=== PATIENT | male | born 1960 | race Caucasian/White ===

== ENCOUNTER 2017-11-24 11:03 | Observation (INO) ==
[~2017-11-24 11:03] MED LIST: *HR* FentaNYL (PF) 100 MCG/2 ML VIAL IVP PRN; *HR* OxyCODONE Immed Rel 5 MG TABLET PO PRN; *HR* Promethazine 25 MG/ML VIAL IVP PRN; Ondansetron 4 MG/2 ML VIAL IVP ONE
[2017-11-24] MEDS ORDERED: 0.9 % Sodium Chloride 1,000 ML IVC ONE (11:39)
[2017-11-24] MEDS ORDERED: Ketorolac 15 MG/ML VIAL IVP ONE (11:43)
[2017-11-24] MEDS ORDERED: Ondansetron 4 MG/2 ML VIAL IVP ONE (11:43)
[2017-11-24] MEDS ORDERED: Isovue-370 500 ML INFUS..BTL IV ONE (11:43)
[2017-11-24 12:00] LABS: Bilirubin,Urine Negative (Negative); Blood,Urine Negative (Negative); Clarity,Urine Clear (Clear); Color,Urine Yellow (Yellow); Glucose,Urine (UA) Normal (Normal); Ketones,Urine Negative (Negative); Leukocyte Esterase,Urine Negative (Negative); Nitrite,Urine Negative (Negative); Protein,Urine Negative (Neg-Trace); Specific Gravity,Urine 1.014 (1.010-1.025); Urobilinogen,Urine Normal (Normal)
[2017-11-24 12:55] LABS: Basophils % 0.4 %; Eosinophils # 0.2 K/mcL (0.0-0.6); Eosinophils % 1.8 %; Hematocrit 49.5 % (37.5-50.1); Hemoglobin 16.6 g/dL (12.9-16.9); Immature Granulocytes % 0.4 % (0-4); Lymphocytes # 2.6 K/mcL (0.6-4.6); Lymphocytes % 32.2 %; Mean Corpuscular HGB Conc 33.5 g/dL (31.6-35.5); Mean Corpuscular Hemoglobin 29.6 pg (28.0-33.3); Mean Corpuscular Volume 88.4 fL (83.0-100.0); Mean Platelet Volume 9.9 fL (9.4-12.4); Monocytes # 0.7 K/mcL (0.0-1.3); Monocytes % 8.1 %; Neutrophils # 4.6 K/mcL (1.6-8.9); Platelet Count 262 K/mcL (140-400); Red Cell Distribution Width 13.4 % (11.5-14.5); Segmented Neutrophils % 57.1 %
[2017-11-24 13:17] LABS: Alanine Aminotransferase 32 Units/L (7-52); Albumin 4.2 g/dL (3.5-5.7); Albumin/Globulin Ratio 1.4 (1.1-2.2); Alkaline Phosphatase 94 Units/L (34-104); Aspartate Amino Transferase 24 Units/L (13-39); BUN/Creatinine Ratio 16 (6-26); Bilirubin,Direct 0.2 mg/dL (0.0-0.2); Bilirubin,Indirect 0.3 mg/dL (0.0-1.2); Bilirubin,Total 0.5 mg/dL (0.3-1.0); Blood Urea Nitrogen 14 mg/dL (6-20); Calcium 9.2 mg/dL (8.6-10.3); Carbon Dioxide 28 mEq/L (23-29); Chloride 107 mEq/L (98-107); Glucose 101 mg/dL (70-105); Lipase 24 Units/L (11-82); Osmolality,Calculated 289 (280-300); Potassium 4.1 mEq/L (3.5-5.1); Sodium 139 mEq/L (136-145); Total Protein 7.2 g/dL (6.4-8.9); eGFR For African Americans > 60 (> 60); eGFR For Non-African Americans > 60 (> 60)
[2017-11-24] MEDS ORDERED: *HR* FentaNYL (PF) 100 MCG/2 ML VIAL IVP ONE (14:12)
--- NOTE | 2017-11-24 14:12 | Emergency Department Note ---
Disposition Clinical Impression: Abdominal pain Qualifiers: Abdominal location: right lower quadrant Qualified Code(s): R10.31 - Right lower quadrant pain Disposition: Admitted As Inpatient Condition: Good Referrals: Jl Camacho MD [Primary Care Provider] - Forms: ED Satisfaction Letter, Work/School Release Time of Disposition: 16:46 Abdominal Pain HPI - General Chief Complaint: ED Abdominal Pain Stated Complaint: Abdominal pain Time Seen by Provider: 11/24/17 11:37 Source: patient Mode of arrival: ambulatory Limitations: no limitations Nursing Notes Reviewed: Yes Vital Signs Reviewed: Yes - History of Present Illness HPI Narrative: 57-year-old male history of COPD presents with abdominal pain. Complains of gradually worsened right lower quadrant pain for past 3 days. Describes as a sharp stabbing pain without radiation. Associated nausea no vomiting. Recently has been getting worse with certain movements. No association to food. Patient took a Vicodin from a friend which did help with the symptoms. No fevers. Decreased appetite. Denies any genital pain. Denies any urinary symptoms. History of a Stephen x2 years performed by Dr. Lomeli, denies any other abdominal surgeries. Pt Subjective Complaint: abdominal pain Pain Scale: 10 - Related Data Home Medications Medication Instructions Recorded Confirmed Omeprazole [PriLOSEC] 40 mg PO DAILY 04/25/16 06/30/16 Ranitidine HCl [Zantac] 150 mg PO HS 04/25/16 06/30/16 Simethicone [Bicarsim Forte] 125 mg PO Q8H 04/25/16 06/30/16 Previous Rx's Medication Instructions Recorded Docusate [Colace] 100 mg PO BID PRN #30 capsule 04/25/16 Allergies Allergy/AdvReac Type Severity Reaction Status Date / Time No Known Allergies Allergy Verified 11/24/17 11:21 All systems ED: reviewed and negative except as stated. Review of Systems: As Per HPI Constitutional: Denies: fever, chills ENT ED: Denies: congestion Cardiovascular: Denies: chest pain Respiratory: Denies: cough, dyspnea Gastrointestinal: Reports: abdominal pain, nausea. Denies: vomiting, diarrhea, constipation, hematemesis, melena, hematochezia Genitourinary: Denies: urgency, dysuria, testicular pain Musculoskeletal: Denies: back pain Integumentary: Denies: rash, abrasion Neurological: Denies: headache, weakness Abdominal Pain PMH - Past Medical History Medical history: Reports: COPD, GERD Male Surgical History: Reports: other Psychiatric history: Reports: no psych history - Social History Smoking status: Current every day smoker Alcohol use: Reports: none Drug use: Reports: none Physical Exam - General Limitations: no limitations General appearance: alert - Head Head exam: atraumatic, normocephalic, normal inspection - Eye Eye exam: Present: normal appearance, PERRL, EOMI. Absent: scleral icterus - ENT ENT exam: normal exam, normal oropharynx, mucous membranes moist - Neck Neck exam: Present: normal inspection, full ROM, trachea midline - Chest Chest inspection: Present: normal inspection, symmetric chest wall rise - Respiratory Respiratory exam: Present: normal lung sounds bilaterally - Cardiovascular Cardiovascular exam: Present: regular rate, normal rhythm, normal heart sounds. Absent: systolic murmur, diastolic murmur - Abdominal Exam Abdominal exam: Present: tenderness (RLQ), normal bowel sounds, obturator sign, Rovsing's sign, tenderness at McBurney's Point. Absent: distention, guarding, rebound, rigidity, Mullen's sign Abdominal tenderness: Present: RLQ - Extremities Exam Extremities exam: Present: normal inspection, full ROM, normal capillary refill. Absent: tenderness, pedal edema - Back Exam Back exam: Present: normal inspection, full ROM. Absent: tenderness, CVA tenderness (R), CVA tenderness (L) - Neurological Exam Neurological exam: Present: alert, oriented X3 - Psychiatric Psychiatric exam: Present: normal affect, normal mood - Skin Skin exam: Present: warm, dry, intact, normal color. Absent: rash, cyanosis, diaphoresis Course Course Narrative: 57-year-old male right lower quadrant past 3 days. Some associated nausea poor appetite. On exam his abdomen is tender to the right lower quadrant with positive Rovsing sign a McBurney point. Also has a obturator sign. He has some mild guarding as well. Review of his labs he has no leukocytosis in his labs or otherwise unremarkable. Review of his CT scan shows a mildly dilated appendix updated 9 mm. His pain was control with toward all and will give him additional analgesic. Will have the surgeon [facility] consultant evaluate the patient for possible surgery versus observation. - Consultations Consultation #1: Consulted with the on-call surgeon Dr. Farah in regards to patient's clinical exam, CT findings and laboratory results. Patient has no leukocytosis but he does have positive Rovsing sign and McBurney point with some mild guarding on examination. Concern for acute appendicitis. The surgeon will come down to the emergency department to evaluate the patient for further disposition. Patient's pain was control with Toradol and now exacerbated. Fentanyl ordered. Time: 14:55 Consultation #2: Surgery has evaluated the patient. Plan for surgery possibly later today. They will reevaluate. Consideration for possible discharge vs. operative vs. observation with Flagyl and Cipro. Time: 16:22 Consultation #3: Final decision by Dr. Farah, surgeon, for surgery today. Surgical consent obtained by surgery resident. Place on Zosyn and placed on IVF. Time: 16:46 Vital Signs Temperature 97.5 F L 11/24/17 11:22 Pulse Rate 76 11/24/17 11:22 Respiratory Rate 26 11/24/17 11:22 Blood Pressure 121/85 11/24/17 11:22 O2 Sat by Pulse Oximetry 99 11/24/17 11:22 Temperature 97.5 F L 11/24/17 11:22 Pulse Rate 76 11/24/17 11:22 Respiratory Rate 26 11/24/17 11:22 Blood Pressure 121/85 11/24/17 11:22 O2 Sat by Pulse Oximetry 99 11/24/17 12:38 Oxygen Delivery Oxygen Delivery Room Air Abdominal Pain - MDM Narrative Medical decision making narrative: Patient was discussed with my attending physician who agrees with ED management and final disposition. They independently evaluated the patient. Please refer to their attestation to this encounter for additional information. This note was generated by [employer] voice recognition software and as a result grammatical or spelling errors may occur using this program. - Medical Records Medical records reviewed: Yes I reviewed the patient's medical records. - Lab Data Lab results reviewed: Yes I reviewed the patient's lab results. Result diagrams: 11/24/17 12:30 11/24/17 12:30 Lab Results 11/24/17 11/24/17 11/24/17 Range/Units 11:08 12:30 12:30 WBC 8.1 (4.3-11.1) K/mcL RBC 5.60 H (4.19-5.50) M/mcL Hgb 16.6 (12.9-16.9) g/dL Hct 49.5 (37.5-50.1) % MCV 88.4 (83.0-100.0) fL MCH 29.6 (28.0-33.3) pg MCHC 33.5 (31.6-35.5) g/dL RDW 13.4 (11.5-14.5) % Plt Count 262 (140-400) K/mcL MPV 9.9 (9.4-12.4) fL Immature Gran % 0.4 (0-4) % Seg Neutrophils % 57.1 % Lymphocytes % 32.2 % Monocytes % 8.1 % Eosinophils % 1.8 % Basophils % 0.4 % Neutrophils # 4.6 (1.6-8.9) K/mcL Lymphocytes # 2.6 (0.6-4.6) K/mcL Monocytes # 0.7 (0.0-1.3) K/mcL Eosinophils # 0.2 (0.0-0.6) K/mcL Basophils # 0.0 (0.0-0.2) K/mcL PT (9.4-12.1) Seconds INR APTT (26.0-36.0) Seconds Sodium 139 (136-145) mEq/L Potassium 4.1 (3.5-5.1) mEq/L Chloride 107 (98-107) mEq/L Carbon Dioxide 28 (23-29) mEq/L BUN 14 (6-20) mg/dL Creatinine 0.86 (0.70-1.30) mg/dL Est GFR ( Amer) > 60 (> 60) Est GFR (Non-Af Amer) > 60 (> 60) BUN/Creatinine Ratio 16 (6-26) Glucose 101 (70-105) mg/dL Calculated Osmolality 289 (280-300) Calcium 9.2 (8.6-10.3) mg/dL Total Bilirubin 0.5 (0.3-1.0) mg/dL Direct Bilirubin 0.2 (0.0-0.2) mg/dL Indirect Bilirubin 0.3 (0.0-1.2) mg/dL AST 24 (13-39) Units/L ALT 32 (7-52) Units/L Alkaline Phosphatase 94 (34-104) Units/L Serum Total Protein 7.2 (6.4-8.9) g/dL Albumin 4.2 (3.5-5.7) g/dL Globulin 3.0 (2.4-3.5) g/dL Albumin/Globulin Ratio 1.4 (1.1-2.2) Lipase 24 (11-82) Units/L Urine Color Yellow (Yellow) Urine Clarity Clear (Clear) Urine pH 6.0 (5.0-8.0) pH Units Ur Specific [place] 1.014 (1.010-1.025) Urine Protein Negative (Neg-Trace) mg/dL Urine Glucose (UA) Normal (Normal) mg/dL Urine Ketones Negative (Negative) mg/dL Urine Blood Negative (Negative) Urine Nitrite Negative (Negative) Urine Bilirubin Negative (Negative) Urine Urobilinogen Normal (Normal) mg/dL Ur Leukocyte Esterase Negative (Negative) Ur Culture Indicated? NO (NO) 11/24/17 Range/Units 12:30 WBC (4.3-11.1) K/mcL RBC (4.19-5.50) M/mcL Hgb (12.9-16.9) g/dL Hct (37.5-50.1) % MCV (83.0-100.0) fL MCH (28.0-33.3) pg MCHC (31.6-35.5) g/dL RDW (11.5-14.5) % Plt Count (140-400) K/mcL MPV (9.4-12.4) fL Immature Gran % (0-4) % Seg Neutrophils % % Lymphocytes % % Monocytes % % Eosinophils % % Basophils % % Neutrophils # (1.6-8.9) K/mcL Lymphocytes # (0.6-4.6) K/mcL Monocytes # (0.0-1.3) K/mcL Eosinophils # (0.0-0.6) K/mcL Basophils # (0.0-0.2) K/mcL PT 10.3 (9.4-12.1) Seconds INR 1.0 APTT 31.8 (26.0-36.0) Seconds Sodium (136-145) mEq/L Potassium (3.5-5.1) mEq/L Chloride (98-107) mEq/L Carbon Dioxide (23-29) mEq/L BUN (6-20) mg/dL Creatinine (0.70-1.30) mg/dL Est GFR ( Amer) (> 60) Est GFR (Non-Af Amer) (> 60) BUN/Creatinine Ratio (6-26) Glucose (70-105) mg/dL Calculated Osmolality (280-300) Calcium (8.6-10.3) mg/dL Total Bilirubin (0.3-1.0) mg/dL Direct Bilirubin (0.0-0.2) mg/dL Indirect Bilirubin (0.0-1.2) mg/dL AST (13-39) Units/L ALT (7-52) Units/L Alkaline Phosphatase (34-104) Units/L Serum Total Protein (6.4-8.9) g/dL Albumin (3.5-5.7) g/dL Globulin (2.4-3.5) g/dL Albumin/Globulin Ratio (1.1-2.2) Lipase (11-82) Units/L Urine Color (Yellow) Urine Clarity (Clear) Urine pH (5.0-8.0) pH Units Ur Specific [place] (1.010-1.025) Urine Protein (Neg-Trace) mg/dL Urine Glucose (UA) (Normal) mg/dL Urine Ketones (Negative) mg/dL Urine Blood (Negative) Urine Nitrite (Negative) Urine Bilirubin (Negative) Urine Urobilinogen (Normal) mg/dL Ur Leukocyte Esterase (Negative) Ur Culture Indicated? (NO) - Radiology Data Radiology results reviewed: Yes I reviewed the patient's radiology results. Abdomen/Pelvis CT 11/24/17 11:43 IMPRESSION: Appendix is mildly dilated and increased in size compared to prior study without evidence of fat infiltration or abscess formation with low-grade appendicitis not excluded given symptomatology. Scattered fluid filled small bowel loops are noted which may be related to low-grade enteritis. No bowel obstruction is seen. RECOMMENDATIONS: Clinical and laboratory correlation is recommended. D/ / 11/24/2017 14:39:16 Geovanna Garay MD / garima Interpreting Provider: Geovanna Garay MD Attestation Statement - Attestation Attestation: I, Pilo Beverly DO, examined this patient [id number] and my medical decision-making was reviewed with Jagdish Handy DO , Resident Physician. I agree with the documented findings, disposition and treatment plan as described except to the extent set forth below. Please see my progress notes for details.
--- NOTE | 2017-11-24 14:32 | Emergency Department Note ---
Disposition Clinical Impression: Abdominal pain Qualifiers: Abdominal location: right lower quadrant Qualified Code(s): R10.31 - Right lower quadrant pain Disposition: Admitted As Inpatient Condition: Good Referrals: Jl Camacho MD [Primary Care Provider] - Forms: ED Satisfaction Letter, Work/School Release Time of Disposition: 17:48 General Adult HPI - General Chief complaint: ED Abdominal Pain Stated complaint: Abdominal pain Time Seen by Provider: 11/24/17 11:37 Source: patient Mode of arrival: ambulatory Limitations: no limitations - History of Present Illness Pain Scale: 10 - Related Data Home Medications Medication Instructions Recorded Confirmed Ranitidine HCl [Zantac] 150 mg PO BID 04/25/16 11/24/17 Albuterol Sulfate [Ventolin Hfa] 2 puff IH Q4H PRN 11/24/17 11/24/17 Docusate [Colace] 100 mg PO DAILY PRN 11/24/17 11/24/17 Allergies Allergy/AdvReac Type Severity Reaction Status Date / Time No Known Allergies Allergy Verified 11/24/17 17:11 Past Medical History - Past Medical History Medical history: Reports: COPD, GERD Psychiatric history: Reports: no psych history - Social History Smoking Status: Current every day smoker Smokeless Tobacco Status: No Alcohol use: Reports: none Drug use: Reports: none Physical Exam - General Limitations: no limitations General appearance: alert Course Vital Signs Temperature 97.5 F L 11/24/17 11:22 Pulse Rate 76 11/24/17 11:22 Respiratory Rate 26 11/24/17 11:22 Blood Pressure 121/85 11/24/17 11:22 O2 Sat by Pulse Oximetry 99 11/24/17 11:22 Temperature 97.5 F L 11/24/17 11:22 Pulse Rate 76 11/24/17 11:22 Respiratory Rate 26 11/24/17 11:22 Blood Pressure 121/85 11/24/17 11:22 O2 Sat by Pulse Oximetry 99 11/24/17 12:38 Oxygen Delivery Oxygen Delivery Room Air Medical Decision Making - Lab Data Result diagrams: 11/24/17 12:30 11/24/17 12:30 Lab Results 11/24/17 11/24/17 11/24/17 Range/Units 11:08 12:30 12:30 WBC 8.1 (4.3-11.1) K/mcL RBC 5.60 H (4.19-5.50) M/mcL Hgb 16.6 (12.9-16.9) g/dL Hct 49.5 (37.5-50.1) % MCV 88.4 (83.0-100.0) fL MCH 29.6 (28.0-33.3) pg MCHC 33.5 (31.6-35.5) g/dL RDW 13.4 (11.5-14.5) % Plt Count 262 (140-400) K/mcL MPV 9.9 (9.4-12.4) fL Immature Gran % 0.4 (0-4) % Seg Neutrophils % 57.1 % Lymphocytes % 32.2 % Monocytes % 8.1 % Eosinophils % 1.8 % Basophils % 0.4 % Neutrophils # 4.6 (1.6-8.9) K/mcL Lymphocytes # 2.6 (0.6-4.6) K/mcL Monocytes # 0.7 (0.0-1.3) K/mcL Eosinophils # 0.2 (0.0-0.6) K/mcL Basophils # 0.0 (0.0-0.2) K/mcL PT (9.4-12.1) Seconds INR APTT (26.0-36.0) Seconds Sodium 139 (136-145) mEq/L Potassium 4.1 (3.5-5.1) mEq/L Chloride 107 (98-107) mEq/L Carbon Dioxide 28 (23-29) mEq/L BUN 14 (6-20) mg/dL Creatinine 0.86 (0.70-1.30) mg/dL Est GFR ( Amer) > 60 (> 60) Est GFR (Non-Af Amer) > 60 (> 60) BUN/Creatinine Ratio 16 (6-26) Glucose 101 (70-105) mg/dL Calculated Osmolality 289 (280-300) Calcium 9.2 (8.6-10.3) mg/dL Total Bilirubin 0.5 (0.3-1.0) mg/dL Direct Bilirubin 0.2 (0.0-0.2) mg/dL Indirect Bilirubin 0.3 (0.0-1.2) mg/dL AST 24 (13-39) Units/L ALT 32 (7-52) Units/L Alkaline Phosphatase 94 (34-104) Units/L Serum Total Protein 7.2 (6.4-8.9) g/dL Albumin 4.2 (3.5-5.7) g/dL Globulin 3.0 (2.4-3.5) g/dL Albumin/Globulin Ratio 1.4 (1.1-2.2) Lipase 24 (11-82) Units/L Urine Color Yellow (Yellow) Urine Clarity Clear (Clear) Urine pH 6.0 (5.0-8.0) pH Units Ur Specific [place] 1.014 (1.010-1.025) Urine Protein Negative (Neg-Trace) mg/dL Urine Glucose (UA) Normal (Normal) mg/dL Urine Ketones Negative (Negative) mg/dL Urine Blood Negative (Negative) Urine Nitrite Negative (Negative) Urine Bilirubin Negative (Negative) Urine Urobilinogen Normal (Normal) mg/dL Ur Leukocyte Esterase Negative (Negative) Ur Culture Indicated? NO (NO) 11/24/17 Range/Units 12:30 WBC (4.3-11.1) K/mcL RBC (4.19-5.50) M/mcL Hgb (12.9-16.9) g/dL Hct (37.5-50.1) % MCV (83.0-100.0) fL MCH (28.0-33.3) pg MCHC (31.6-35.5) g/dL RDW (11.5-14.5) % Plt Count (140-400) K/mcL MPV (9.4-12.4) fL Immature Gran % (0-4) % Seg Neutrophils % % Lymphocytes % % Monocytes % % Eosinophils % % Basophils % % Neutrophils # (1.6-8.9) K/mcL Lymphocytes # (0.6-4.6) K/mcL Monocytes # (0.0-1.3) K/mcL Eosinophils # (0.0-0.6) K/mcL Basophils # (0.0-0.2) K/mcL PT 10.3 (9.4-12.1) Seconds INR 1.0 APTT 31.8 (26.0-36.0) Seconds Sodium (136-145) mEq/L Potassium (3.5-5.1) mEq/L Chloride (98-107) mEq/L Carbon Dioxide (23-29) mEq/L BUN (6-20) mg/dL Creatinine (0.70-1.30) mg/dL Est GFR ( Amer) (> 60) Est GFR (Non-Af Amer) (> 60) BUN/Creatinine Ratio (6-26) Glucose (70-105) mg/dL Calculated Osmolality (280-300) Calcium (8.6-10.3) mg/dL Total Bilirubin (0.3-1.0) mg/dL Direct Bilirubin (0.0-0.2) mg/dL Indirect Bilirubin (0.0-1.2) mg/dL AST (13-39) Units/L ALT (7-52) Units/L Alkaline Phosphatase (34-104) Units/L Serum Total Protein (6.4-8.9) g/dL Albumin (3.5-5.7) g/dL Globulin (2.4-3.5) g/dL Albumin/Globulin Ratio (1.1-2.2) Lipase (11-82) Units/L Urine Color (Yellow) Urine Clarity (Clear) Urine pH (5.0-8.0) pH Units Ur Specific [place] (1.010-1.025) Urine Protein (Neg-Trace) mg/dL Urine Glucose (UA) (Normal) mg/dL Urine Ketones (Negative) mg/dL Urine Blood (Negative) Urine Nitrite (Negative) Urine Bilirubin (Negative) Urine Urobilinogen (Normal) mg/dL Ur Leukocyte Esterase (Negative) Ur Culture Indicated? (NO) Attestation Statement - Attestation Attestation: I, Pilo Beverly DO, examined this patient [id number] and my medical decision-making was reviewed with Jagdish Handy DO , Resident Physician. I agree with the documented findings, disposition and treatment plan as described except to the extent set forth below. Please see my progress notes for details. 57-year-old male presents emergency room with complaint of right lower quadrant abdominal pain. Patient denies any trauma or injury. Currently denying any nausea vomiting diarrhea fevers chills chest pain shortness of breath headache or vision change. Denies any headache or vision change at this point. Patient has never had any intra-abdominal pathology in the past. Lungs are clear to auscultation heart is regular abdomen is softly does have point tenderness in the right lower quadrant of the abdomen right side. He denies any bowel movements over the last 24 hours. Denies any urinary symptoms at this time. Patient has no specific history of intra-abdominal surgery, obstruction, scars. Patient is concerning for appendicitis versus obstruction based on presentation symptoms. Fluids pain medication nausea medication will be given. CBC chemistry lipase will be ordered at this time. Patient also has CT imaging with IV contrast secondary to the patient's small body habitus. No critical care provider this patient's treatment course at this time. See detailed documentation of the physical exam, medical intervention, medical decision-making and disposition in the resident physician's note. 1500 Patient has what appears to be possible appendicitis. Dilation of the appendix is noted. Surgical consultation placed. They will evaluate the patient here in the emergency room. 1700 Patient found to have physical exam findings concerning for appendicitis based on the surgeon Dr. Mcdonald. Patient will be taken to the operative suite for definitive management. Admission process will be completed at this time.
[2017-11-24 16:40] LABS: Prothrombin Time 10.3 Seconds (9.4-12.1)
[2017-11-24 16:42] LABS: Activated Partial Thrombo Time 31.8 Seconds (26.0-36.0)
[2017-11-24] MEDS ORDERED: Piperacillin/Tazobactam 3.375 GM in 0.9 % Sodium Chloride Mini Bag 100 ML IVPB ONE (16:59)
[2017-11-24] MEDS ORDERED: 0.9 % Sodium Chloride 1,000 ML IVC SCH (17:00)
--- NOTE | 2017-11-24 17:06 | General Surg History&Physical ---
<Richard Anand - Last Filed: 11/24/17 17:14> Date of Encounter: 11/24/17 Time of Encounter: 16:00 Assessment and Plan (1) Acute appendicitis Current Visit: Yes Status: Acute Afebrile, no wt ct, VSS, labs and basic chemistrites unremarkable Abdomen non-rigid, non-peritoneal Tenderness at McBurney's point; questionable obturator, negative psoas CT demonstrates mild dilatation without identified fecolith Plan: While labs and imaging do not immediately suggest acute appendicitis, location of abdominal pain and physical exam findings warrant evaluation in the operating room. We will proceed with a laparoscopic appendectomy. Risks and benefits have been discussed with the patient and he agrees to the discussed plan. The assessment and plan as outlined above was discussed with the patient and/or family members who expressed understanding and agreement. All questions were answered. Qualifiers: Acute appendicitis type: unspecified acute appendicitis type Qualified Code (s): K35.80 - Unspecified acute appendicitis History of Present Illness Chief complaint: RLQ abd pain HPI: Mr. Rose is a 57 year old male with PMH COPD and GERD, presenting with worsening RLQ pain for the past 3 days. He describes it as sharp, non-radiating , worse with touch and movement, improved mildly with pain meds, he remembers having a bm 3 days ago, he says constipation is not typical for him. He continues to past flatus. He denies fever, nausea, vomiting, hematuria, hematochezia, trauma, heavy lifting. He has had a malgorzata fundoplication 2 years ago, no abdominal surgeries. Past Med Surg Social Fam HX - Past Medical History Medical history: COPD, GERD Psychiatric history: no psych history - Social History Smoking Status: Current every day smoker Smokeless Tobacco Status: No Alcohol use: none Drug use: none Medications and Allergies Ranitidine HCl [Zantac] 150 mg PO BID 04/25/16 [History] Albuterol Sulfate [Ventolin Hfa] 2 puff IH Q4H PRN 11/24/17 [History] Docusate [Colace] 100 mg PO DAILY PRN 11/24/17 [History] 3 Allergy/AdvReac Type Severity Reaction Status Date / Time No Known Allergies Allergy Verified 11/24/17 17:11 Review of Systems All systems PM: reviewed and no additional remarkable complaints except as stated All systems PM: The remainder of the systems were reviewed and are negative - Constitutional fatigue, no chills, no fever(s) - Cardiovascular no diaphoresis, no dyspnea on exertion - Respiratory no hemoptysis - Gastrointestinal abdominal pain, constipation, no bloating, no hematemesis, no hematochezia, no melena, no nausea, no vomiting - Genitourinary no difficulty urinating, no dysuria - Musculoskeletal no back pain - Integumentary no change in pigmentation - Neurological no paresthesias - Psychiatric no anxiety, no confusion, no depression General Surgery Exam Initial Vital Signs Temp Pulse Resp BP Pulse Ox 97.5 F L 76 26 121/85 99 11/24/17 11:22 11/24/17 11:22 11/24/17 11:22 11/24/17 11:22 11/24/17 11:22 - General physical appearance well developed, well nourished, moderate distress - ENT normal mucosa - Respiratory normal respiratory effort, clear to auscultation - Cardiovascular Cardiovascular exam: Present: RRR, no murmurs/rubs/gallops - Abdomen Abdomen general surgery: Present: bowel sounds present, soft, tender ( tenderness at mcburney's; questionable obturator sign, negative psoas sign), guarding. Absent: rigid Abdominal Tenderness: Present: RLQ - Integumentary Integumentary general surgery: Present: warm and dry - Neurologic Present: normal coordination, normal sensation - Musculoskeletal Present: normal posture - Psychiatric Psychiatric general surgery: Present: A&Ox3, appropriate, speech is normal, memory intact Results - Labs 11/24/17 12:30 11/24/17 12:30 Abnormal lab results RBC 5.60 M/mcL (4.19-5.50) H 11/24/17 12:30 Diabetes panel 11/24/17 Range/Units 12:30 Sodium 139 (136-145) mEq/L Potassium 4.1 (3.5-5.1) mEq/L Chloride 107 (98-107) mEq/L Carbon Dioxide 28 (23-29) mEq/L BUN 14 (6-20) mg/dL Creatinine 0.86 (0.70-1.30) mg/dL Glucose 101 (70-105) mg/dL Calcium 9.2 (8.6-10.3) mg/dL AST 24 (13-39) Units/L ALT 32 (7-52) Units/L Alkaline Phosphatase 94 (34-104) Units/L Albumin 4.2 (3.5-5.7) g/dL Calcium panel 11/24/17 Range/Units 12:30 Calcium 9.2 (8.6-10.3) mg/dL Albumin 4.2 (3.5-5.7) g/dL Pituitary panel 11/24/17 Range/Units 12:30 Sodium 139 (136-145) mEq/L Potassium 4.1 (3.5-5.1) mEq/L Chloride 107 (98-107) mEq/L Carbon Dioxide 28 (23-29) mEq/L BUN 14 (6-20) mg/dL Creatinine 0.86 (0.70-1.30) mg/dL Glucose 101 (70-105) mg/dL Calcium 9.2 (8.6-10.3) mg/dL Adrenal panel 11/24/17 Range/Units 12:30 Sodium 139 (136-145) mEq/L Potassium 4.1 (3.5-5.1) mEq/L Chloride 107 (98-107) mEq/L Carbon Dioxide 28 (23-29) mEq/L BUN 14 (6-20) mg/dL Creatinine 0.86 (0.70-1.30) mg/dL Glucose 101 (70-105) mg/dL Calcium 9.2 (8.6-10.3) mg/dL Total Bilirubin 0.5 (0.3-1.0) mg/dL AST 24 (13-39) Units/L ALT 32 (7-52) Units/L Alkaline Phosphatase 94 (34-104) Units/L Albumin 4.2 (3.5-5.7) g/dL All other labs normal. - Imaging Additional studies: Abdomen/Pelvis CT 11/24/17 11:43 IMPRESSION: Appendix is mildly dilated and increased in size compared to prior study without evidence of fat infiltration or abscess formation with low-grade appendicitis not excluded given symptomatology. Scattered fluid filled small bowel loops are noted which may be related to low-grade enteritis. No bowel obstruction is seen. RECOMMENDATIONS: Clinical and laboratory correlation is recommended. D/ / 11/24/2017 14:39:16 Geovanna Garay MD / garima Interpreting Provider: Geovanna Garay MD <Bernardino Farah - Last Filed: 11/24/17 17:21> Date of Encounter: 11/24/17 History of Present Illness HPI: Mr. Rose is a 57 year old male Review of Systems All systems PM: The remainder of the systems were reviewed and are negative General Surgery Exam Initial Vital Signs Temp Pulse Resp BP Pulse Ox 97.5 F L 76 26 121/85 99 11/24/17 11:22 11/24/17 11:22 11/24/17 11:22 11/24/17 11:22 11/24/17 11:22 Results - Labs 11/24/17 12:30 11/24/17 12:30 Abnormal lab results RBC 5.60 M/mcL (4.19-5.50) H 11/24/17 12:30 Diabetes panel 11/24/17 Range/Units 12:30 Sodium 139 (136-145) mEq/L Potassium 4.1 (3.5-5.1) mEq/L Chloride 107 (98-107) mEq/L Carbon Dioxide 28 (23-29) mEq/L BUN 14 (6-20) mg/dL Creatinine 0.86 (0.70-1.30) mg/dL Glucose 101 (70-105) mg/dL Calcium 9.2 (8.6-10.3) mg/dL AST 24 (13-39) Units/L ALT 32 (7-52) Units/L Alkaline Phosphatase 94 (34-104) Units/L Albumin 4.2 (3.5-5.7) g/dL Calcium panel 11/24/17 Range/Units 12:30 Calcium 9.2 (8.6-10.3) mg/dL Albumin 4.2 (3.5-5.7) g/dL Pituitary panel 11/24/17 Range/Units 12:30 Sodium 139 (136-145) mEq/L Potassium 4.1 (3.5-5.1) mEq/L Chloride 107 (98-107) mEq/L Carbon Dioxide 28 (23-29) mEq/L BUN 14 (6-20) mg/dL Creatinine 0.86 (0.70-1.30) mg/dL Glucose 101 (70-105) mg/dL Calcium 9.2 (8.6-10.3) mg/dL Adrenal panel 04/17/18 Range/Units 12:30 Sodium 139 (136-145) mEq/L Potassium 4.1 (3.5-5.1) mEq/L Chloride 107 (98-107) mEq/L Carbon Dioxide 28 (23-29) mEq/L BUN 14 (6-20) mg/dL Creatinine 0.86 (0.70-1.30) mg/dL Glucose 101 (70-105) mg/dL Calcium 9.2 (8.6-10.3) mg/dL Total Bilirubin 0.5 (0.3-1.0) mg/dL AST 24 (13-39) Units/L ALT 32 (7-52) Units/L Alkaline Phosphatase 94 (34-104) Units/L Albumin 4.2 (3.5-5.7) g/dL All other labs normal. - Attending Attestation I have personally seen and examined the patient. I have reviewed pertinent labs , imaging, progress notes, including this one. I agree with the above assessment and plan and wish to include the following... 57M with 4 days of worsening right lower quadrant pain with associated anorexia , nausea, subjective chills; TTP along RLQ; WBC wnl and no obvious evidence of acute appendicitis on CT; although his story sounds like acute appendicitis, it is odd that his WBC and CT scan do not suggest appendicitis that has been brewing for three days. There is a chance that he was having symptoms of gastroenteritis, had subsequent lymphoid enlargement and appdendiceal obstruction causing appendicitis; will plan on taking patient to the OR for diagnostic lap, poss appy, poss ileocectomy; Discussed with patient in detail and he wishes to proceed;
[2017-11-24] MEDS ORDERED: Ondansetron 4 MG/2 ML VIAL IVP PRN (17:34)
[2017-11-24] MEDS ORDERED: *HR* FentaNYL (PF) 100 MCG/2 ML VIAL IVP PRN (19:57)
--- NOTE | 2017-11-24 20:46 | Anesthesia Evaluation PreOp ---
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: Denies Any Significant HX Other Medical History: GERD Anesthesia History: No Prior Anesthetic Complications, Past Anesthesia (robotic lap malgorzata) Alcohol Use: none Drug use: none Medications and Allergies Ranitidine HCl [Zantac] 150 mg PO BID 04/25/16 [History] Albuterol Sulfate [Ventolin Hfa] 2 puff IH Q4H PRN 11/24/17 [History] Docusate [Colace] 100 mg PO DAILY PRN 11/24/17 [History] 3 Allergy/AdvReac Type Severity Reaction Status Date / Time No Known Allergies Allergy Verified 11/24/17 17:11 - Meds/Allergy Pre-op Review Medications Reviewed: Yes Allergies Reviewed: Yes Beta Blockers on Current Med List: No Anesthesia Results - Labs 11/24/17 12:30 11/24/17 12:30 Anesthesia Exam Vital Signs/O2 Sat, Most Current Temp Pulse Resp BP Pulse Ox 98.2 F 50 16 136/80 99 11/24/17 19:34 11/24/17 19:34 11/24/17 19:34 11/24/17 19:34 11/24/17 19:34 Weight: 66kg - HEENT Pupil (Motor): Pupils equal, EOMI Mallampati: III Teeth: Edentulous Oral Opening: Greater than 3 - INSTRUMENT MAKER APPRENTICE LOC: Oriented INSTRUMENT MAKER APPRENTICE Motor: Normal RUE, Normal LUE, Normal RLE, Normal LLE, Normal Face INSTRUMENT MAKER APPRENTICE Sensory: Normal: RUE, LUE, RLE, LLE, Face - Cardiac Rhythm: Regular - Pulmonary Breath Sounds: bilateral Clear Respiratory Effort: Symmetrical Anesthesia Assess/Plan ASA Score: 3 (COPD, smoker) Modified Oscar Scale for Level of Consciousness: Cooperative, oriented, and tranquil Anesthetic Plan: General Monitoring Plan: Standard Monitors Recovery Plan: PACU
[2017-11-24] MEDS ORDERED: *HR* Propofol 200 MG/20 ML VIAL IVP ONE (20:48)
[2017-11-24] MEDS ORDERED: *HR* Succinylcholine 200 MG/10 ML VIAL IVP ONE (20:48)
[2017-11-24] MEDS ORDERED: Lidocaine -MPF 4% 5 ML AMPUL ONE (20:48)
[2017-11-24] MEDS ORDERED: *HR* Midazolam HCl 2 MG/2 ML VIAL ONE (20:48)
[2017-11-24] MEDS ORDERED: *HR* Rocuronium Bromide 50 MG/5 ML VIAL ONE (20:48)
[2017-11-24] MEDS ORDERED: *HR* FentaNYL (PF) 100 MCG/2 ML VIAL ONE (20:48)
[2017-11-24] MEDS ORDERED: Lidocaine -MPF 2% 2 ML VIAL ONE (20:48)
[2017-11-24] MEDS ORDERED: Albuterol 2.5 MG/3 ML NEBULIZER ONE (21:56)
[2017-11-24] MEDS ORDERED: Albuterol 2.5 MG/3 ML NEBULIZER IH ONE (22:00)
[2017-11-24] MEDS ORDERED: *HR* Meperidine 25 MG/ML SYRINGE IVP PRN (22:02)
[2017-11-24] MEDS ORDERED: Ringers Solution, Lactated 1,000 ML IVC SCH (22:15)
[2017-11-24] MEDS ORDERED: Acetaminophen IV 1,000 MG/100 ML INFUS..BTL ONE (22:51)
[2017-11-24] MEDS ORDERED: Dexamethasone 4 MG/ML VIAL ONE (23:14)
[2017-11-24] MEDS ORDERED: Neostigmine Methylsulfate 3 MG/3 ML SYRINGE ONE (23:22)
[2017-11-25] MEDS ORDERED: *HR* FentaNYL (PF) 100 MCG/2 ML VIAL ONE (00:38)
--- NOTE | 2017-11-25 00:55 | Operative Note ---
Date of procedure: 11/25/17 Pre-op diagnosis: acute appendicitis Post-op diagnosis: same Procedure: laparoscopic appendectomy Implants: none Complications: none Anesthesia: GETA Local Anesthetics: 0.5% Sensorcaine HCL SubQ (cc) Surgeon: Bernardino Farah Was there an inventory control assistant present: No Topology Professor Other: tung talley Estimated blood loss (cc): 10 Specimen: appendix Condition: stable Disposition: PACU Procedure in Detail: The patient was brought into the operating room suite. The patient was placed in the supine position. Mechanical DVT prophylaxis was initiated. The patient underwent smooth induction of general endotracheal anesthesia. The patient was prepped and draped in the usual fashion. Preoperative antibiotics were given. A timeout was held identifying the correct patient, pathology, and procedure. Everyone was in agreement and we began a procedure. Incision to Mesenteric Window I started by creating a supraumbilical incision and via open Brownlee technique entered into the abdomen. I then used a Vicryl suture on a UR 6 needle in a [id number] fashion to reapproximate but not close the fascia. I then inserted the 10 trocar followed by the camera to visualize the intraabdominal cavity. I then created a 5 mm incision suprapubically and inserted the 5 mm trocar under direct visualization. Roughly 1 handbreadth lateral to the umbilical incision I created another 5 mm incision and inserted another 5 mm trocar under direct visualization. I then inserted the nontraumatic instruments into the 5 mm ports and began the procedure. I was able to identify the tinea coli coalescing at the base of the cecum to identify the appendix. Using the nontraumatic grasper I was able to grasp the appendix and then using the [place] dissector was able to create a mesenteric window. It should be stated that prior to making the mesenteric window, due to the amount of inflammation and adhesions, the cecum and appendix were in the right mid abdomen to upper abdomen. I had to mobilize the cecum/appendix from the abdominal side wall using tension and countertension along with blunt and sharp dissection. Due to the amount of adhesions, the appendix was oriented upside down. So, after taking down the adhesions, I was able to confirm that the appendix led to the base of the cecum. Furthermore, I was able to orient the appendix in the correct way. Mesenteric Window to Appendectomy I then inserted the nontraumatic grasper into the same mesenteric window to widen it. I then grasped the appendix and switched from the 10 mm camera to the 5 mm camera so that we can insert the stapler through the umbilical port. The teeth of the stapler through the mesenteric window. It should be stated that the stapler was a 45 mm bowel load stapler. It was positioned at the base of the appendix and I was able to confirm under direct visualization that the teeth contained no other structures such as the cecum. I then fired the stapler and resected the appendix from the base of the cecum. I then loaded up a vascular load stapler and then in the similar fashion did fire across the mesentery. Retrieval to Closure I then inserted the Endo Catch bag to retrieve the specimen which was intact upon retrieval. I then switched back to the 10 mm camera and inserted the nontraumatic grasper as well as a suction-fare enforcement officer into the 5 mm ports. And under direct visualization I was able to appreciate the staple line of the mesoappendix as well as the staple line of the base of the cecum. There was no obvious leaking nor bleeding. The pelvis did not have any collection of fluid. I then concluded the procedure, turned off the insufflation, removed the trochars under direct visualization, and then closed the umbilical fascia using the Vicryl suture that was placed at the beginning. I then closed all incisions with interrupted 4-0 Monocryl. And then sealed with Dermabon. It should be stated that I did use 0.5% Marcaine as a local anesthetic. The patient tolerated the procedure well and did go back to PACU in stable condition.
[2017-11-25] MEDS ORDERED: Piperacillin/Tazobactam 3.375 GM in 0.9 % Sodium Chloride Mini Bag 100 ML IVPB SCH (01:00)
--- NOTE | 2017-11-25 01:13 | Anesthesia Evaluation Post Op ---
Date of Encounter: 11/25/17 Time of Encounter: 01:12 - Vital Signs Vital Signs: Vital Signs/O2 Sat, Most Current Temp Pulse Resp BP Pulse Ox 97.5 F L 65 20 143/86 100 11/25/17 00:53 11/25/17 01:03 11/25/17 01:03 11/25/17 01:03 11/25/17 01:03 - Lungs Lungs: Clear Ascult./Percussion - Airway Airway: Non-obstructed - Cardiovascular Regular Rate - Mental Status Mental Status: Confused - Pain Pain Scale: 0 Pain Scale used: Numeric (1 - 10) - Nausea Vomiting Nausea Vomiting: Not Present - Hydration Hydration: NPO - Discharge PostOp Status: Transfer Patient to floor
[2017-11-25] MEDS ORDERED: 0.9 % Sodium Chloride 1,000 ML IVC SCH (01:47)
[2017-11-25] MEDS ORDERED: Ondansetron 4 MG/2 ML VIAL IVP PRN (02:13)
[2017-11-25] MEDS: *HR* OxyCODONE Immed Rel 5 MG TABLET PO PRN ×2 (03:24→10:29)
[2017-11-25] MEDS ORDERED: *HR* Enoxaparin 40 MG/0.4 ML SYRINGE SQ SCH ×2 (06:00)
[2017-11-25] MEDS ORDERED: Famotidine 20 MG TABLET PO SCH (09:00)
--- NOTE | 2017-11-25 09:25 | Discharge Summary ---
<Richard Anand - Last Filed: 11/25/17 10:26> Orders not resulted at time of discharge: Pending orders 11/25/17 00:36 Surgical Pathology [PTH] Routine Date of Encounter: 11/25/17 Time of Encounter: 08:30 - Discharge Diagnosis (1) Acute appendicitis Priority: Primary Status: Acute Qualifiers: Acute appendicitis type: unspecified acute appendicitis type Qualified Code (s): K35.80 - Unspecified acute appendicitis General Surgery Exam Initial Vital Signs Temp Pulse Resp BP Pulse Ox 97.5 F L 76 26 121/85 99 11/24/17 11:22 11/24/17 11:22 11/24/17 11:22 11/24/17 11:22 11/24/17 11:22 - General physical appearance well developed, well nourished, no distress - Eyes normal ocular movement - Neck no lymphadectomy - Respiratory normal expansion, normal respiratory effort, clear to auscultation - Cardiovascular Cardiovascular exam: Present: RRR, no murmurs/rubs/gallops - Abdomen Abdomen general surgery: Present: soft. Absent: guarding, rebound, rigid - Incision Incision: Present: clean and dry, intact. Absent: draining, inflamed, erythema - Integumentary Integumentary general surgery: Present: warm and dry, no abnormal pigmentation - Neurologic Present: normal coordination, normal sensation - Musculoskeletal Present: normal posture - Psychiatric Psychiatric general surgery: Present: speech is normal, memory intact - Hospital Course Hospital course: Mr. Rose is a 57 year old male who presented yesterday 11/24 for 3 days of worsening RLQ abdominal pain. He was exquisitely tender to touch at McBurney' s point, with positive obturator sign. CT abdomen demonstrated mild dilatation of the appendix. Patient was evaluated by Dr. Farah who took patient to the OR for laparoscopic appendectomy. Patient today 11/25 reports good pain control, good UOP, ambulation, he is on regular diet and denies nausea or vomiting. Plan is for discharge today with follow-up in outpatient clinic in 2 weeks. - Time Spent with Patient Total time spent providing and/or coordinating discharge services: - Discharge Medications Prescriptions: Ondansetron ODT [Zofran ODT] 4 mg SL Q6HR PRN #15 tab.rapdis PRN Reason: Nausea OxyCODONE/APAP 5/325 [Percocet 5/325 MG] 1 each PO Q6HR PRN 7 Days #28 tablet PRN Reason: Pain Ibuprofen [Motrin] 800 mg PO Q8HR PRN #42 tablet PRN Reason: Pain Docusate [Colace] 100 mg PO BID PRN #30 capsule PRN Reason: Nausea Home Medications: Ranitidine HCl [Zantac] 150 mg PO BID 04/25/16 [History] Albuterol Sulfate [Ventolin Hfa] 2 puff IH Q4H PRN 11/24/17 [History] Docusate [Colace] 100 mg PO DAILY PRN 11/24/17 [History] Docusate [Colace] 100 mg PO BID PRN #30 capsule 11/25/17 [Rx] Ibuprofen [Motrin] 800 mg PO Q8HR PRN #42 tablet 11/25/17 [Rx] Ondansetron ODT [Zofran ODT] 4 mg SL Q6HR PRN #15 tab.rapdis 11/25/17 [Rx] OxyCODONE/APAP 5/325 [Percocet 5/325 MG] 1 each PO Q6HR PRN 7 Days #28 tablet [Rx] Allergies/Adverse Reactions: 3 Allergy/AdvReac Type Severity Reaction Status Date / Time No Known Allergies Allergy Verified 11/24/17 17:11 Date of admission: 11/24/17 18:10 Primary care physician: Jl Camacho Labs on day of discharge: Labs from last 24 hours 11/24/17 19:40 POC Glucose 72 - Patient Status Disposition: Home, Self-Care Condition: Good Overall status at discharge: patient is progressing back to baseline - Discharge Instructions Instructions: Appendicitis (DC) Follow Up With: Palmira Jeff [employer] FABRICATOR [Advanced Practice Nurse] - 12/07/17 1:30 pm (f/u lap appy ([place]) 11/25/17) Additional Instructions: General Surgical Discharge Instructions 1. No pushing, pulling, or lifting greater than 15 lbs for 2-4 weeks (depending upon procedure). 2. You may shower beginning today, but no tub baths, soaking, or swimming for 2 weeks. 3. You may resume driving when you are off narcotics and are safe to react in a car. 4. Take ibuprofen every 8 hours for discomfort. If this does not relieve discomfort, you may take the as needed Percocet. Take narcotics as directed. Do not take more narcotics then directed and do not share your narcotics with any other person. Do not drink alcohol while on narcotics. 5. Take stool softeners (Colace) or a water based laxative (Miralax) while taking narcotics. You may hold for loose stools. 6. Report any fevers greater than 100.5F, increase abdominal discomfort, drainage that looks like pus, increased redness or pain at the surgical site, or any vomiting. 7. Report any pain in the calves, shortness of breath, or rapid heartbeat. 8. Follow-up in the office as directed. 9. If you were prescribed antibiotics, do not stop them without talking to your provider. - Diet and Activity Activity: increase activity as tolerated Diet: advance to your usual diet <Bernardino Farah - Last Filed: 11/25/17 12:14> Orders not resulted at time of discharge: Pending orders 11/25/17 00:36 Surgical Pathology [PTH] Routine Date of Encounter: 11/25/17 General Surgery Exam Initial Vital Signs Temp Pulse Resp BP Pulse Ox 97.5 F L 76 26 121/85 99 11/24/17 11:22 11/24/17 11:22 11/24/17 11:22 11/24/17 11:22 11/24/17 11:22 - Hospital Course Hospital course: Mr. Rose is a 57 year old male - Time Spent with Patient Total time spent providing and/or coordinating discharge services: Date of admission: 11/24/17 18:10 Primary care physician: Jl Camacho Labs on day of discharge: Labs from last 24 hours 11/24/17 19:40 POC Glucose 72 - Attending Attestation I have personally seen and examined the patient. I have reviewed pertinent labs , imaging, progress notes, including this one. I agree with the above assessment and plan.
[2017-11-25 10:24] VITALS: BP 125/76
== END 2017-11-25 12:52 | disposition home or self-care (01) ==
LOC: EMEROO 11:03 → 3ANU 11:03
PROVIDERS: ADMIT Family Medicine; ATTEND Surgery